=== PATIENT | female | born 1985 | race Caucasian/White ===

== ENCOUNTER 2024-11-25 18:43 | Emergency (ER) | payer OTHER ==
[~2024-11-25] VITALS: Ht 157.5 cm; Wt 131.0 kg
[2024-11-25 18:46] VITALS: O2SAT 100
[2024-11-25 19:05] VITALS: BP 137/76; PULSE 91; RESP 16; TEMP 36.8; O2SAT 98
[2024-11-25] MEDS: HYDROCODONE/ACETAMINOPHEN 5/325MG TABLET PO ONE (21:14)
[2024-11-25] MEDS ORDERED: ACET-2708 MT (21:57)
[2024-11-25] MEDS ORDERED: IBUP-2030 PO (21:57)
== END 2024-11-25 22:44 | disposition home or self-care (01) ==
LOC: ER 18:43
DX: S82.832A Other fracture of upper and lower end of left fibula, initial encounter for closed fracture (principal); Z79.1 Long term (current) use of non-steroidal anti-inflammatories (NSAID); Z98.890 Other specified postprocedural states; W19.XXXA Unspecified fall, initial encounter; Y93.89 Activity, other specified; Y92.89 Other specified places as the place of occurrence of the external cause; Y99.8 Other external cause status
CPT/HCPCS: 73610; 73630; 99284

== ENCOUNTER 2025-04-23 08:54 | Emergency (ER) | payer OTHER ==
[~2025-04-23] VITALS: Ht 165.1 cm; Wt 121.0 kg
[~2025-04-23 08:54] MED LIST: ACET-2708 MT; IBUP-2030 PO
[2025-04-23 08:58] VITALS: O2SAT 96
[2025-04-23] MEDS: IBUPROFEN 800MG TABLET PO ONE (09:42)
[2025-04-23] MEDS ORDERED: IBUP-2030 PO (09:49)
[2025-04-23 09:55] VITALS: TEMP 36.8; O2SAT 98
[2025-04-23 10:09] VITALS: BP 132/72; PULSE 88; RESP 14
[2025-04-23] MEDS: HYDROCODONE/ACETAMINOPHEN 7.5/325MG TABLET PO ONE (10:09)
== END 2025-04-23 10:21 | disposition home or self-care (01) ==
LOC: ER 08:54
DX: S93.402A Sprain of unspecified ligament of left ankle, initial encounter (principal); I10 Essential (primary) hypertension; Z55.6 Problems related to health literacy; Z79.1 Long term (current) use of non-steroidal anti-inflammatories (NSAID); X50.1XXA Overexertion from prolonged static or awkward postures, initial encounter; Y93.01 Activity, walking, marching and hiking; Y92.480 Sidewalk as the place of occurrence of the external cause; Y99.8 Other external cause status
CPT/HCPCS: 81025; 73610; 99283; Z7610